=== PATIENT | male | born 1995 | race Caucasian/White ===

== ENCOUNTER 2021-06-03 19:24 | Emergency (ER) | payer OTHER ==
[2021-06-03 20:14] LABS: HEMOGLOBIN 15.7 gm/dl (14.0-17.5); RED BLOOD COUNT 4.83 M/UL (4.20-5.50); WHITE BLOOD COUNT 7.2 K/UL (4.5-11.0)
[2021-06-03 20:41] LABS: BUN/CREATININE RATIO 17 (0-10)
== END 2021-06-03 22:05 | disposition home or self-care (01) ==
LOC: ER1 19:24
PROVIDERS: Family Medicine
DX: R07.9 Chest pain, unspecified (principal)
CPT/HCPCS: 71046; 80053; 80061; 82550; 82553; 83874; 84484; 85025; 85379; 93005; 99285